=== PATIENT | male | born 1945 | race Caucasian/White ===

== ENCOUNTER → 2016-10-18 | Outpatient (CLI) | payer MEDICARE, BC ==
[~2016-10-18] MED LIST: ALBUTEROL2.5 MG/3 M IH; ATROVENT I0.2 MG/1 M IH; FLOVENT DI100 MCG/Ac IH; LISINOPRIL AND1 TA1 PO; MELOXICAM7.5 MG PO; VERAPAMIL ER240 M1 PO
== END ==
LOC: LAB 09:13
DX: I10 Essential (primary) hypertension (principal); R05 Cough; R06.09 Other forms of dyspnea; M19.90 Unspecified osteoarthritis, unspecified site

== ENCOUNTER → 2016-12-20 | Outpatient (CLI) | payer BC, MEDICARE ==
[~2016-12-20] VITALS: Ht 172.7 cm; Wt 94.5 kg
[2016-12-20 10:49] VITALS: BP 119/70
== END ==
LOC: AMSURD 10:37
DX: I10 Essential (primary) hypertension (principal); J44.9 Chronic obstructive pulmonary disease, unspecified; R06.09 Other forms of dyspnea

== ENCOUNTER → 2016-12-29 | Outpatient (CLI) | payer MEDICARE, BC ==
[2016-12-20 10:49] VITALS: BP 119/70
== END ==
LOC: CARDREHAB 07:17
DX: R06.09 Other forms of dyspnea (principal); J44.9 Chronic obstructive pulmonary disease, unspecified; I10 Essential (primary) hypertension; Z87.891 Personal history of nicotine dependence; R06.00 Dyspnea, unspecified
CPT/HCPCS: A9500

== ENCOUNTER → 2017-09-27 | Outpatient (CLI) | payer MEDICARE, BC ==
[2016-12-20 10:49] VITALS: BP 119/70
[2017-09-27 07:47] LABS: ALBUMIN 4.2 g/dL (3.5-5.0); BUN/CREATININE RATIO 16.1 (6.0-26.0); CALCIUM 9.6 mg/dL (8.4-10.2); POTASSIUM 5.4 mmol/L (3.6-5.0); TOTAL BILIRUBIN 0.8 mg/dL (0.2-1.3); TOTAL PROTEIN 7.2 g/dL (6.3-8.2)
== END ==
LOC: LAB 07:22
PROVIDERS: Family Medicine
DX: I10 Essential (primary) hypertension (principal)

== ENCOUNTER → 2017-10-29 | Outpatient (CLI) | payer MEDICARE, BC ==
[2016-12-20 10:49] VITALS: BP 119/70
[2017-10-29 11:01] LABS: EOS # 0.2 (0.04-0.40); EOS % 3.1 % (0.0-4.0); HEMATOCRIT 44.7 % (42.0-52.0); HEMOGLOBIN 15.4 g/dL (13.5-18.0); LYMPH# 1.6 (1.50-4.00); MEAN CELL VOLUME 88 fl (78-100); MEAN CORPUSCULAR HEMOGLOBIN 30 pg (27-31); MEAN CORPUSCULAR HGB CONC 35 g/dL (33-37); MEAN PLATELET VOLUME 9.5 fl (7.4-10.4); MONO # 0.6 (0.20-0.80); NEU # 3.5 (1.40-6.50); PLATELET COUNT 175 K/mm3 (130-400); RED BLOOD COUNT 5.08 M/mm3 (4.20-5.60); WHITE BLOOD COUNT 5.9 K/mm3 (4.8-10.8)
[2017-10-29 11:13] LABS: CALCIUM 9.5 mg/dL (8.4-10.2); POTASSIUM 5.7 mmol/L (3.6-5.0)
== END ==
LOC: LAB 10:23
PROVIDERS: Family Medicine
DX: R53.83 Other fatigue (principal); I10 Essential (primary) hypertension

== ENCOUNTER → 2017-11-19 | Outpatient (CLI) | payer MEDICARE, BC ==
[2016-12-20 10:49] VITALS: BP 119/70
[2017-11-19 09:53] LABS: BUN/CREATININE RATIO 13.6 (6.0-26.0); CALCIUM 9.1 mg/dL (8.4-10.2)
== END ==
LOC: LAB 09:23
PROVIDERS: Family Medicine
DX: I10 Essential (primary) hypertension (principal); R53.83 Other fatigue

== ENCOUNTER → 2017-12-24 | Outpatient (CLI) | payer MEDICARE, BC ==
[2016-12-20 10:49] VITALS: BP 119/70
== END ==
LOC: LAB 09:08
DX: R53.83 Other fatigue (principal); I10 Essential (primary) hypertension

== ENCOUNTER → 2018-06-24 | Outpatient (CLI) | payer MEDICARE, BC ==
[2016-12-20 10:49] VITALS: BP 119/70
== END ==
LOC: LAB 10:27
DX: Z12.5 Encounter for screening for malignant neoplasm of prostate (principal); Z12.12 Encounter for screening for malignant neoplasm of rectum; Z00.00 Encounter for general adult medical examination without abnormal findings; I10 Essential (primary) hypertension; J44.9 Chronic obstructive pulmonary disease, unspecified

== ENCOUNTER → 2019-04-09 | Outpatient (CLI) | payer MEDICARE, BC ==
[2016-12-20 10:49] VITALS: BP 119/70
[2019-04-09 12:02] LABS: PH-URINE 5.5 (5.0 - 8.0); URINE APPEARANCE CLEAR; URINE BILIRUBIN NEGATIVE (NEGATIVE); URINE BLOOD TRACE (NEGATIVE); URINE COLOR YELLOW; URINE GLUCOSE NEGATIVE (NEGATIVE); URINE KETONE NEGATIVE (NEGATIVE); URINE LEUKOCYTE ESTERASE NEGATIVE (NEGATIVE); URINE NITRATE NEGATIVE (NEGATIVE); URINE PROTEIN(semi-quant) TRACE mg/dL (NEGATIVE); URINE UROBILINOGEN NORMAL (NORMAL); URINE WBC 0-1 /hpf (0-3)
[2019-04-09 12:12] LABS: POTASSIUM 4.3 mmol/L (3.5-5.1)
[2019-04-09 12:13] LABS: CALCIUM 9.4 mg/dL (8.3-10.5)
== END ==
LOC: RAD 11:27 → LAB 11:27
PROVIDERS: Family Medicine
DX: N20.0 Calculus of kidney (principal); M47.816 Spondylosis without myelopathy or radiculopathy, lumbar region; R10.814 Left lower quadrant abdominal tenderness

== ENCOUNTER → 2019-12-17 | Outpatient (CLI) | payer MEDICARE, BC ==
[2016-12-20 10:49] VITALS: BP 119/70
[2019-12-17 13:09] LABS: HEMATOCRIT 42.6 % (42.0-52.0); HEMOGLOBIN 14.8 g/dL (13.5-18.0); MEAN PLATELET VOLUME 9.4 fl (7.4-10.4); RED BLOOD COUNT 4.93 M/mm3 (4.20-5.60); RED CELL DISTRIBUTION WIDTH 12.8 % (11.5-14.5); WHITE BLOOD COUNT 6.5 K/mm3 (4.8-10.8)
[2019-12-17 13:33] LABS: ALBUMIN 4.1 g/dL (3.4-4.8); POTASSIUM 3.5 mmol/L (3.5-5.1)
[2019-12-17 13:34] LABS: CALCIUM 9.2 mg/dL (8.3-10.5)
[2019-12-17 13:35] LABS: TOTAL PROTEIN 6.4 g/dL (6.2-8.1)
[2019-12-17 13:37] LABS: TOTAL BILIRUBIN 0.4 mg/dL (0.2-1.2)
== END ==
LOC: LAB 12:55
PROVIDERS: Family Medicine
DX: R16.0 Hepatomegaly, not elsewhere classified (principal); R21 Rash and other nonspecific skin eruption; Z78.9 Other specified health status

== ENCOUNTER → 2020-03-26 | Outpatient (CLI) | payer MEDICARE, BC ==
[2016-12-20 10:49] VITALS: BP 119/70
[2020-03-26 09:13] LABS: POTASSIUM 4.9 mmol/L (3.5-5.1)
[2020-03-26 09:14] LABS: CALCIUM 9.1 mg/dL (8.3-10.5)
== END ==
LOC: LAB 08:38
PROVIDERS: Family Medicine
DX: Z00.00 Encounter for general adult medical examination without abnormal findings (principal); Z12.5 Encounter for screening for malignant neoplasm of prostate; I10 Essential (primary) hypertension; J44.9 Chronic obstructive pulmonary disease, unspecified; M15.0 Primary generalized (osteo)arthritis; L73.8 Other specified follicular disorders; L85.3 Xerosis cutis

== ENCOUNTER → 2021-03-17 | Outpatient (CLI) | payer MEDICARE, BC ==
[2021-03-17 09:40] LABS: ALBUMIN 4.3 g/dL (3.4-4.8)
[2021-03-17 09:41] LABS: CALCIUM 9.5 mg/dL (8.3-10.5)
[2021-03-17 09:42] LABS: TOTAL PROTEIN 7.1 g/dL (6.2-8.1)
[2021-03-17 09:44] LABS: TOTAL BILIRUBIN 0.6 mg/dL (0.2-1.2)
== END ==
LOC: LAB 09:07
PROVIDERS: Family Medicine
DX: Z00.00 Encounter for general adult medical examination without abnormal findings (principal)

== ENCOUNTER → 2022-03-23 | Outpatient (CLI) | payer MEDICARE, BC ==
[2022-03-23 11:00] LABS: BASO # 0.07 K/mm3 (0.02-0.10); EOS # 0.11 K/mm3 (0.04-0.40); EOS % 1.9 % (0.0-4.0); HEMATOCRIT 46.4 % (42.0-52.0); HEMOGLOBIN 15.8 g/dL (13.5-18.0); LYMPH# 1.51 K/mm3 (1.50-4.00); MEAN CELL VOLUME 90 fl (78-100); MEAN CORPUSCULAR HEMOGLOBIN 31 pg (27-31); MEAN CORPUSCULAR HGB CONC 34 g/dL (33-37); MEAN PLATELET VOLUME 9.5 fl (7.4-10.4); MONO # 0.44 K/mm3 (0.20-0.80); NEU # 3.69 K/mm3 (1.40-6.50); PLATELET COUNT 198 K/mm3 (130-400); RED BLOOD COUNT 5.17 M/mm3 (4.20-5.60); RED CELL DISTRIBUTION WIDTH 12.7 % (11.5-14.5); WHITE BLOOD COUNT 5.8 K/mm3 (4.8-10.8)
[2022-03-23 11:05] LABS: ALBUMIN 4.2 g/dL (3.4-4.8); POTASSIUM 4.9 mmol/L (3.5-5.1)
[2022-03-23 11:06] LABS: CALCIUM 8.8 mg/dL (8.3-10.5)
[2022-03-23 11:07] LABS: TOTAL PROTEIN 6.8 g/dL (6.2-8.1)
[2022-03-23 11:09] LABS: TOTAL BILIRUBIN 0.6 mg/dL (0.2-1.2)
[2022-03-23 11:25] LABS: URINE APPEARANCE CLEAR; URINE BILIRUBIN NEGATIVE (NEGATIVE); URINE BLOOD NEGATIVE (NEGATIVE); URINE COLOR LITH YELLOW; URINE GLUCOSE NEGATIVE (NEGATIVE); URINE KETONE NEGATIVE (NEGATIVE); URINE LEUKOCYTE ESTERASE NEGATIVE (NEGATIVE); URINE NITRATE NEGATIVE (NEGATIVE); URINE PROTEIN(semi-quant) NEGATIVE (NEGATIVE); URINE UROBILINOGEN NORMAL (NORMAL); URINE WBC 0-1 /hpf (0-3)
== END ==
LOC: LAB 10:23
PROVIDERS: Family Medicine
DX: Z12.5 Encounter for screening for malignant neoplasm of prostate (principal); R19.7 Diarrhea, unspecified; I10 Essential (primary) hypertension; Z13.1 Encounter for screening for diabetes mellitus

== ENCOUNTER → 2022-09-27 | Outpatient (CLI) | payer MEDICARE, BC | LOC: RAD 09:42 | DX: M17.12 Unilateral primary osteoarthritis, left knee (principal); M25.462 Effusion, left knee ==

== ENCOUNTER → 2023-03-29 | Outpatient (CLI) | payer MEDICARE, BC ==
[2023-03-29 09:20] LABS: ALBUMIN 4.2 g/dL (3.4-4.8); POTASSIUM 5.7 mmol/L (3.5-5.1)
[2023-03-29 09:22] LABS: CALCIUM 9.3 mg/dL (8.3-10.5)
[2023-03-29 09:23] LABS: TOTAL PROTEIN 6.5 g/dL (6.2-8.1)
[2023-03-29 09:25] LABS: TOTAL BILIRUBIN 0.5 mg/dL (0.2-1.2)
== END ==
LOC: LAB 08:58
PROVIDERS: Family Medicine
DX: Z13.1 Encounter for screening for diabetes mellitus (principal); Z12.5 Encounter for screening for malignant neoplasm of prostate; I10 Essential (primary) hypertension; J44.9 Chronic obstructive pulmonary disease, unspecified; M54.59 Other low back pain; M17.12 Unilateral primary osteoarthritis, left knee

== ENCOUNTER → 2023-04-05 | Outpatient (CLI) | payer MEDICARE, BC ==
[2023-04-05 09:13] LABS: POTASSIUM 4.5 mmol/L (3.5-5.1)
[2023-04-05 09:14] LABS: CALCIUM 9.1 mg/dL (8.3-10.5)
== END ==
LOC: LAB 08:46
PROVIDERS: Family Medicine
DX: E87.5 Hyperkalemia (principal)

== ENCOUNTER → 2024-10-08 | Outpatient (CLI) | payer MEDICARE, BC ==
[2024-10-08 09:55] LABS: ALBUMIN 4.3 g/dL (3.4-4.8)
[2024-10-08 10:00] LABS: TOTAL BILIRUBIN 0.6 mg/dL (0.2-1.2)
== END ==
LOC: LAB 09:34
PROVIDERS: Family Medicine
DX: Z12.5 Encounter for screening for malignant neoplasm of prostate (principal); Z13.1 Encounter for screening for diabetes mellitus; M79.10 Myalgia, unspecified site; I10 Essential (primary) hypertension